=== PATIENT | male | born 1955 | race Caucasian/White ===

== ENCOUNTER 2025-04-16 06:21 | Day surgery (SDC) | payer MEDICARE, SELFPAY | END 2025-04-16 09:15 | disposition home or self-care (01) | LOC: GI 06:21 | PROVIDERS: ATTENDING PHYSICIAN Internal Medicine Gastroenterology | DX: Z12.11 Encounter for screening for malignant neoplasm of colon (principal); D12.2 Benign neoplasm of ascending colon; D12.3 Benign neoplasm of transverse colon; K57.30 Diverticulosis of large intestine without perforation or abscess without bleeding; K64.8 Other hemorrhoids; R19.5 Other fecal abnormalities | CPT/HCPCS: 45385; 88305 ==